=== PATIENT | female | born 1995 | race Caucasian/White ===

== ENCOUNTER 2017-09-27 09:53 | Emergency (ER) | payer OTHER ==
[2017-09-27 10:03] VITALS: BP 113/61
--- NOTE | 2017-09-27 11:11 | UC ---
Christiano Lizama Thomas, scribed for Sandra Ohara MD on 09/27/17 at 1109 . Throat Pain/Nasal Armani HPI - HPI Summary HPI Summary: The pt is a 22 y/o F presenting to Urgent Care c/o a sore throat for the last 3- 4 days. She also c/o a cough and she vomits secondary to the cough. pt does report pnd causing her to gag and cough then vomit. The pain is rated 7/10. The pain is aggravated by swallowing and is alleviated by nothing. 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 She has been taking cough medicine as well. Pt additionally c/o chills. Pt denies fevers, diarrhea, and rashes. Patient denies known recent sick contacts. No drooling. Pt is drinking from water bottle in examination room without difficulty. Pt states she thinks she has the flu. no mylagia, arthralgia or fever Patients medication reviewed this visit. - History of Current Complaint Chief Complaint: UCRespiratory Stated Complaint: THROAT PAIN Time Seen by Provider: 09/27/17 10:08 Hx Obtained From: Patient Hx Last Menstrual Period: depo Onset/Duration: Lasting Days - 3, Still Present Severity: Moderate Pain Intensity: 7 Pain Scale Used: 0-10 Numeric Cough: Nonproductive Associated Signs & Symptoms: Positive: Vomiting, Other - Sore throat, cough, chills; NEGATIVE: diarrhea. Negative: Fever, Rash - Allergies/Home Medications Allergies/Adverse Reactions: Allergies Allergy/AdvReac Type Severity Reaction Status Date / Time Lamotrigine [From Lamictal] Allergy Unknown Rash Verified 09/27/17 10:03 Home Medications: Home Medications Medroxyprogesterone Acetate (A [Depo-Provera] 400 mg IM 09/27/17 [History] PMH/Surg Hx/FS Hx/Imm Hx Previously Healthy: No - Asthma; NEGATIVE: DM - Surgical History Surgical History: Yes Surgery Procedure, Year, and Place: bilat tubs - Family History Known Family History: Positive: Cardiac Disease, Hypertension, Diabetes - Social History Occupation: Employed Full-time Lives: With Family Alcohol Use: None Substance Use Type: None Smoking Status (MU): Never Smoked Tobacco - Immunization History Most Recent Influenza Vaccination: august 2016 Review of Systems Constitutional: Chills Skin: Negative Eyes: Negative ENT: Sore Throat Respiratory: Cough Gastrointestinal: Vomiting - secondary to the cough Is Patient Immunocompromised?: No All Other Systems Reviewed And Are Negative: Yes Physical Exam Triage Information Reviewed: Yes Appearance: Well-Appearing, No Pain Distress, Well-Nourished Vital Signs: Initial Vital Signs Temp 97.5 F 09/27/17 10:00 Pulse 95 09/27/17 10:00 Resp 18 09/27/17 10:00 BP 113/61 09/27/17 10:00 Pulse Ox 99 09/27/17 10:00 Eye Exam: Normal Eyes: Positive: Conjunctiva Clear ENT: Positive: Pharyngeal erythema, Nasal drainage, TM dull, Uvula midline, Other - + PND Dental Exam: Normal Neck exam: Normal Neck: Positive: 1 Respiratory Exam: Normal Respiratory: Positive: Chest non-tender, Lungs clear, Normal breath sounds, No respiratory distress, No accessory muscle use Cardiovascular Exam: Normal Cardiovascular: Positive: RRR, No Murmur, Pulses Normal Abdominal Exam: Normal Abdomen Description: Positive: Nontender, No Organomegaly, Soft Musculoskeletal Exam: Normal Neurological Exam: Normal Psychological Exam: Normal Skin Exam: Normal Throat Pain/Nasal Course/Dx - Course Assessment/Plan: The patient is a 22 year old female presenting with sore throat , cough, chills, and vomiting secondary to the cough. Suspect sx related to PND. will check strep and flu. if neg, symptomatic tx. pt comfortable and in agreement with plan - Differential Dx/Diagnosis Provider Diagnoses: pharyngitis. URI Discharge - Discharge Plan Condition: Stable Disposition: HOME Prescriptions: Fluticasone NASAL SPRAY 50MCG* [Flonase NASAL SPRAY 50MCG*] 2 spray BOTH NARES DAILY #1 btl Patient Education Materials: Urinary Tract Infection in Women (ED), Pharyngitis (ED) Referrals: Za Braswell MD [Primary Care Provider] - Additional Instructions: - stay well hydrated. Drink plenty of non-alcholic, non-caffinated beverages - Gargle with warm, salt water 2-3 times a day - Cold beverages may be soothing to your throat - popsicles, apple sauce, jello - Once you start to feel better, change your toothbrush and your pillowcase. These infections are spread by secretions - do NOT share eating or drinking utensils - clean items you share with other people such as cell phones, computer mouse, TV remote, computer tablets, etc - Alternate ibuprofen (Advil, Motrin) 600mg and Tylenol every 3 hours for pain or fever. Take with food. Do NOT take for more than 4-5 days. - Use nasal spray as instructed - Use your albuterol - 2puffs every 4 hours today, then every 4 hours as needed - It is recommended your take a decongestant such as sudafed, Liz-D, Zyrtec- D, or Claritin-D to help with your secretions - Keep your doctor appointment as scheduled tomorrow. Contact your doctor or return with questions or concern The documentation as recorded by the Christiano simms Thomas accurately reflects the service I personally performed and the decisions made by , Sandra Ohara MD.
== END 2017-09-27 11:30 | disposition home or self-care (01) ==
LOC: UCEAST 09:53
DX: J02.9 Acute pharyngitis, unspecified (principal); J06.9 Acute upper respiratory infection, unspecified; Z88.8 Allergy status to other drugs, medicaments and biological substances
CPT/HCPCS: 87502; 87651; 99212; G0463

== ENCOUNTER 2019-08-28 09:56 | Emergency (ER) | payer MEDICARE, MEDICAID ==
--- OUTSIDE RECORDS SUMMARY | 2019-08-28 10:05 | XMS REPORT | Summary of Care ---
:1995 Author Organization [facility] Address [address] [place] [address] Care Team Providers Name Role Phone Za Braswell MD Primary Care Provider Reason for Visit Reason Comments Emesis pt states vomiting all day every day for 4 days ( pt states she took 2 test in the last 7 days that came out negative). states chest heaviness in the morning and dizziness for 2 weeks Encounter Details Date Type Department Care Team Description 07/24/2019 Office Visit [place], [place], Nausea and vomiting , intractability of vomiting not specified, unspecified vomiting type (Primary Dx); Practice PAAdolfo Malaise and fatigue [address] [place], [place] [id number] [place] [address] [phone] Allergies Active Allergy Reactions Severity Noted Date Comments Aspartame-Lamotrigine Hives 07/10/2015 Seasonal Respiratory Reaction 09/03/2016 documented as of this encounter (statuses as of 07/27/2019) Medications Medication Sig Dispensed Refills Start Date End Date Status Norethindrone Take by mouth. 0 Active Acet-Ethinyl Est (MICROGESTIN) 1-20 MG-MCG Oral Tab albuterol HFA Take 2 Puffs by 1 Inhaler 3 03/02/2019 Active (VENTOLIN) 108 (90 inhalation EVERY Base) MCG/ACT FOUR HOURS Inhalation Aero NEEDED Soln (wheezing). ondansetron Take 4 mg by 20 Tab 0 07/24/2019 Active (ZOFRAN) 4 MG Oral mouth EVERY Tab EIGHT HOURS NEEDED (nausea). Naproxen Sodium 220 Take by mouth. 0 Discontinued MG Oral Cap 9 azithromycin Take 2 pills on 6 Tab 0 03/02/2019 Discontinued (ZITHROMAX Z-MONA) the first day 9 250 MG Oral Tab and 1 pill each day for 4 days predniSONE Take 1 Tab by 7 Tab 1 03/02/2019 Discontinued (DELTASONE) 20 MG mouth DAILY. 9 Oral Tab documented as of this encounter (statuses as of 07/27/2019) Active Problems Problem Noted Date PTSD (post-traumatic stress disorder) 07/10/2015 Depression 07/10/2015 documented as of this encounter (statuses as of 07/27/2019) Resolved Problems Problem Noted Date Resolved Date Thyroid activity decreased 07/10/2015 09/03/2016 documented as of this encounter (statuses as of 07/27/2019) Immunizations Name Administration Dates Next Due DTAP Vaccine 03/07/2002, 04/15/1998, 1997, 1997, 1997 HIB 09/08/1999, 1997, 1997, 1997 Hepatitis A Vaccine Peds 05/08/2015, 09/07/2013 Hepatitis B Vaccine 09/08/1999, 05/25/1998, 1997 Human Papillomavirus 09/11/2008, 04/30/2008, 02/29/2008 Influenza (IM) W/Pres 09/03/2016 MENINGOCOCCAL CONJUGATE VACCINE 05/08/2015, 09/11/2008 MMR VACCINE 03/07/2002, 04/15/1998 Pneumococcal Conjugate Vaccine 03/07/2002 Polio - Inactivated Vaccine 05/08/2015, 01/12/2000, 1997, 1997, 1997 TDAP Vaccine 02/29/2008 Varicella Vaccine Live 09/11/2008, 06/27/2000 Vitamin B12 (1,000 mcg) 08/21/2015 documented as of this encounter Social History Tobacco Use Types Packs/Day Years Used Date Current Every Day Smoker Cigarettes 0.5 Started: 09/03/2007 Smokeless Tobacco: Never Used Alcohol Use Drinks/Week oz/Week Comments No 0 Standard drinks or equivalent 0.0 Sex Assigned at Date Recorded Not on file Job Start Date Occupation Industry Not on file Not on file Not on file Travel History Travel Start Travel End No recent travel history available. documented as of this encounter Last Filed Vital Signs Vital Sign Reading Time Taken Comments Blood Pressure 132/78 07/24/2019 4:06 PM EDT Pulse 81 07/24/2019 4:06 PM EDT Temperature 37.2 07/24/2019 4:06 PM EDT C (99 F) Respiratory Rate - - Oxygen Saturation 98% 07/24/2019 4:06 PM EDT Inhaled Oxygen Concentration - - Weight 92.1 kg (203 lb) 07/24/2019 4:06 PM EDT Height 176.5 cm (5' 9.5") 07/24/2019 4:06 PM EDT Body Mass Index 29.55 07/24/2019 4:06 PM EDT documented in this encounter Patient Instructions Patient InstructionsDoVerna brito PA-C - 07/24/2019 4:00 PM EDTOrdered labs -- will do now -- will call with results Clear liquid diet for today, advance slowly to bland diet tomorrow Escribed Zofran for nausea, take 1 every 8 hrs as needed documented in this encounter Progress Notes Verna Rodarte PA-C - 07/24/2019 4:00 PM EDT PATIENT: Charu Morelos : 1995 DATE OF SERVICE: 07/24/2019 REFERRING PRACTITIONER: Mehdi PRIMARY CARE PROVIDER: Za Braswell CHIEF COMPLAINT: Chief Complaint Patient presents with Emesis pt states vomiting all day every day for 4 days ( pt states she took 2 test in the last 7 days that came out negative). states chest heaviness in the morning and dizziness for 2 weeks Subjective HISTORY OF PRESENT ILLNESS: Charu Morelos is a 24-y.o. female who presents with intermittent vomiting, non-bloody diarrhea, chills x 4 days Chest heaviness in the morning and intermittent dizziness x 2 weeks Thought it was GERD -- did not take any OTC meds Took 2 home tests the past 7 days, all negative LMP: 2 months ago -- Normal for her control: BCP -- Takes at same time daily, no missed doses Water: 2 bottles daily Diet: a lot of meat and veggies Alcohol: 1-2 x monthly No recent med change Smokes 1/2 ppd Right now just dizzy when standing Denies fever, chest pains, SOB Depression Screening Past Medical History: Diagnosis Date ADHD (attention deficit hyperactivity disorder) Asthma Bipolar affective disorder (HCC) Depression Imbecile PTSD (post-traumatic stress disorder) 07/10/2015 Thyroid disease Past Surgical History: Procedure Laterality Date HI HEARING TEST 6 MOS PRIOR TO EAR TUBE INSERTION TONSILLECTOMY & ADENOIDECTOMY Family History Problem Relation Age of Onset Asthma Brother Current Outpatient Medications Medication Sig albuterol HFA (VENTOLIN) 108 (90 Base) MCG/ACT Inhalation Aero Soln Take 2 Puffs by inhalation EVERY FOUR HOURS NEEDED (wheezing). Norethindrone Acet-Ethinyl Est (MICROGESTIN) 1-20 MG-MCG Oral Tab Take by mouth. No current facility-administered medications for this visit. Allergies Allergen Reactions Lamictal [Aspartame-Lamotrigine] Hives Seasonal Respiratory Reaction Social History Socioeconomic History Marital status: Single Spouse name: Not on file Number of children: Not on file Years of education: Not on file Highest education level: Not on file Occupational History Not on file Social Needs Financial resource strain: Not on file Food insecurity: Worry: Not on file Inability: Not on file Transportation needs: Medical: Not on file Non-medical: Not on file Tobacco Use Smoking status: Current Every Day Smoker Packs/day: 0.50 Types: Cigarettes Start date: 09/03/2007 Smokeless tobacco: Never Used Substance and Sexual Activity Alcohol use: No Alcohol/week: 0.0 standard drinks Drug use: No Sexual activity: Yes Partners: Male Lifestyle Physical activity: Days per week: Not on file Minutes per session: Not on file Stress: Not on file Relationships Social connections: Talks on phone: Not on file Gets together: Not on file Attends hinduism service: Not on file Active member of club or organization: Not on file Attends meetings of clubs or organizations: Not on file Relationship status: Not on file Intimate partner violence: Fear of current or ex partner: Not on file Emotionally abused: Not on file Physically abused: Not on file Forced sexual activity: Not on file Other Topics Concern Back Care Not Asked Bike Helmet Not Asked Blood Transfusions Not Asked Caffeine Concern Not Asked Exercise Not Asked Hobby Hazards Not Asked International Travel Not Asked Service Not Asked Occupational Exposure Not Asked Seat Belt Not Asked Self-Exams Not Asked Sleep Concern Not Asked Special Diet Not Asked Stress Concern Not Asked Weight Concern Not Asked Social History Narrative Nurse aid?? REVIEW OF SYSTEMS: Skin: negative skin lesions Eyes: negative visual blurring Ears/Nose/Throat: negative rhinorrhea or sore throat Respiratory: positive asthma Cardiovascular: negative chest pain. Positive intermittent chest heaviness in morning, Reflux Gastrointestinal: negative abdominal pain, constipation. Positive nausea, vomiting, non-bloody diarrhea Genitourinary: negative burning on urination, dysuria or vaginal discharge Musculoskeletal: negative arthritis/joint pain Neurologic: positive adhd, dizziness Psychiatric: positive bipolar, PTSD Hematologic/Lymphatic/Immunologic: negative allergies Endocrine: negative diabetes or hot flashes/sweats Objective PHYSICAL EXAMINATION: VITALS: BP 132/78 (BP Location: Right arm, Patient Position: Sitting) | Temp 99 F (37.2 C) | Ht 5' 9.5" (1.765 m) | Wt 203 lb (92.1 kg) | BMI 29.55 kg/m Body mass index is 29.98 kg/m. General appearance - alert, mild distress, cooperative, oriented times 3 Skin - Skin color, texture, turgor normal. No rashes or lesions. Head - Normocephalic. No masses, lesions, tenderness or abnormalities Eyes - conjunctivae/corneas clear. PERRL, EOM's intact. Oropharynx - Lips, mucosa, and tongue normal. Teeth and gums normal. Oropharynx normal. Neck - Neck supple, FROM. No cervical or supraclavicular adenopathy. Thyroid normal, no enlargement Lungs - Good diaphragmatic excursion. Lungs clear. Chest symmetrical. Normal breath sounds. Heart - RRR. No murmurs, clicks or gallops. No peripheral edema. ABDOMEN: soft, mild tenderness epigastric with palpation. Bowel sounds normal. No masses, no organomegaly. IMPRESSION: ICD-9-CM ICD-10-CM 1. Nausea and vomiting, intractability of vomiting not specified, unspecified vomiting type 787.01 R11.2 COMPREHENSIVE METABOLIC PANEL CBC WITH DIFFERENTIAL 2. Malaise and fatigue 780.79 R53.81 THYROID STIMULATING HORMONE R53.83 Plan PLAN: Ordered labs -- will do now -- will call with results Clear liquid diet for today, advance slowly to bland diet tomorrow No dairy Escribed Zofran for nausea, take 1 every 8 hrs as needed Author: Verna Rodarte PA-C 07/24/2019 15:10 documented in this encounter Plan of Treatment Health Maintenance Due Date Last Done Comments CHLAMYDIA SCREENING 1995 MEDICARE ANNUAL WELLNESS VISIT 1995 PAP SMEAR 1995 PNEUMOCOCCAL 0-64 YRS (1 of 1 - 2003 03/07/2002 PPSV23) INFLUENZA VACCINE (#1) 2019 09/03/2016 DEPRESSION SCREENING 07/24/2020 07/24/2019, 07/24/2019 HPV IMMUNIZATION SERIES Completed 09/11/2008, 04/30/2008, 02/29/2008 MENINGOCOCCAL VACCINE IMM Completed 05/08/2015, 09/11/2008 documented as of this encounter Goals Goal Patient Goal Associated Recent Patient-Stated? Author Type Problems Progress Depression Depression 16 No luis Peoples (PHQ-9) (07/24/2019 SANDI Cornelius total score < 5 4:08 PM EDT) Note: This is an individualized treatment (depression) goal for Charu Morelos: Displayed above is your goal for a depression screening (PHQ-9) score that would indicate good control of your depression. Keep a regular sleep schedule Lifestyle No Ashli Peoples FNP Note: This is an individualized lifestyle goal for Charu Morelos: Please maintain a regular sleep schedule. This may help with some symptoms of depression. Take all prescribed medications as Self-management No Ashli Peoples FNP directed Note: This is an individualized self-management goal for Charu Morelos: Please take all prescribed medications as directed. 1. Do not skip doses. If you cannot afford your medications, talk with your doctor. 2. Use a pill reminder system such as a pill box if needed. Your pharmacist can help you with this. 3. Contact your Pharmacy 5 days before your medication runs out. If you cannot take your medications for any reasons, talk with your doctor. 4. Please bring all of your medication bottles and inhalers (or a list of all your medications/inhalers) with you to every visit. Potential barriers to meeting all of your care plan goals will continue to be addressed on an ongoing basis. documented as of this encounter Procedures Procedure Name Priority Date/Time Associated Diagnosis Comments CBC WITH DIFFERENTIAL Routine 07/24/2019 4:32 Nausea and vomiting, Results for this PM EDT intractability of procedure are in vomiting not the results specified, unspecified section. vomiting type THYROID STIMULATING Routine 07/24/2019 4:32 Malaise and fatigue Results for this HORMONE PM EDT procedure are in the results section. COMPREHENSIVE Routine 07/24/2019 4:32 Nausea and vomiting, Results for this METABOLIC PANEL PM EDT intractability of procedure are in vomiting not the results specified, unspecified section. vomiting type documented in this encounter Results THYROID STIMULATING HORMONE (07/24/2019 4:32 PM EDT) TSH 0.97 0.47 - 4.68 uIu/ml [facility] Specimen Blood Performing Organization Address City/State/Zipcode Phone Number [facility] [address] [place] [address] CBC WITH DIFFERENTIAL (07/24/2019 4:32 PM EDT) WBC Count 9.37 3.98 - 10.04 K/uL [facility] RBC Count 4.91 3.93 - 5.22 M/UL [facility] Hemoglobin 13.6 11.2 - 15.7 g/dL [facility] Hematocrit 42.4 34.1 - 44.9 % [facility] MCV 86.4 79.4 - 94.8 FL [facility] MCH 27.7 25.6 - 32.2 PG [facility] MCHC 32.1 (L) 32.2 - 35.5 g/dL [facility] Platelet Count 409 (H) 182 - 369 K/uL [facility] MPV 9.2 (L) 9.4 - 12.3 FL [facility] RDW 12.8 11.7 - 14.4 % [facility] Neutrophil % 55.4 34.0 - 71.1 % [facility] Lymphocyte % 35.1 19.3 - 51.7 % [facility] Monocyte % 4.7 4.7 - 12.5 % [facility] Eosinophil % 3.6 0.7 - 5.8 % [facility] Basophil % 0.9 0.1 - 1.2 % [facility] nRBC % 0.0 0.0 - 0.2 % [facility] Neutrophil # 5.19 1.56 - 6.13 K/UL [facility] Lymphocyte # 3.29 1.18 - 3.74 K/UL [facility] Monocyte # 0.44 0.24 - 0.86 K/UL [facility] Eosinophil # 0.34 0.04 - 0.36 K/UL [facility] Basophil # 0.08 0.01 - 0.08 K/UL [facility] Immature Gran % 0.3 0.0 - 0.4 % [facility] Immature Gran # 0.03 0.00 - 0.03 K/uL [facility] NRBC # 0.00 0.00 - 0.12 K/uL [facility] Specimen Blood Performing Organization Address City/State/Zipcode Phone Number [facility] [address] [place] [address] COMPREHENSIVE METABOLIC PANEL (07/24/2019 4:32 PM EDT) Sodium 140 134 - 145 mmol/L [facility] Potassium 4.0 3.5 - 5.1 mmol/L [facility] Chloride 108 (H) 98 - 107 mmol/L [facility] CO2 24 22 - 30 mmol/L [facility] Calcium 9.6 8.3 - 10.1 mg/dl [facility] Albumin 4.0 3.5 - 5.0 g/dl [facility] BUN 8 7 - 17 mg/dl [facility] Creatinine 0.7 0.7 - 1.2 mg/dl [facility] Glucose 105 (H) 70 - 99 mg/dl [facility] Total Protein 7.4 6.3 - 8.2 g/dl [facility] Total Bilirubin 0.3 0.0 - 1.1 MG/DL [facility] AST 19 15 - 46 U/L [facility] ALT 26 9 - 52 U/L [facility] Alkaline 59 40 - 150 U/L [facility] Phosphatase [facility] eGFR >60 See Interpretation [facility] Comment: Below ml/min/1.73ml [facility] Estimated GFR Interpretation: Above 60ml/min/1.73m2 = Normal Renal Function 30-59 ml/min/1.73m2 = Stage 3 Chronic Kidney Disease 15-29 ml/min/1.73m2 = Stage 4 Chronic Kidney Disease Less than 15 ml/min/1.73m2 = Stage 5 Chronic Kidney Disease The GFR value is calculated using the Modification of Diet in Renal Disease ( MDRD) Study Equation which can be found at: https://www.kidney.org/content/gutn-bzhom-vrczdztw BUN/Creatinine 11 6 - 22 RATIO [facility] Anion Gap 8 3 - 11 mmol/L [facility] A/G Ratio 1.2 0.8 - 2.0 ratio [facility] Specimen Blood Performing Organization Address City/State/Zipcode Phone Number [facility] [address] [place] [address] documented in this encounter Visit Diagnoses Diagnosis Nausea and vomiting, intractability of vomiting not specified, unspecified vomiting type - Primary Malaise and fatigue Other malaise and fatigue documented in this encounter Insurance Payer Benefit Plan / Subscriber ID Effective Dates Phone Address Type Group MEDICARE MEDICARE PART A xxxxxxxxxxx 2019-Present Medicare & B MEDICAID [facility] xxxxxxxx 2019-Present Medicaid [place] MEDICAID Guarantor Name Account Type Relation to Date of Phone Billing Patient Address Charu Morelos Personal/Family 1995 [address] (Home) [address] [phone] [place], [place] (Work) [id number] documented as of this encounter
[2019-08-28 10:19] VITALS: BP 113/68
--- NOTE | 2019-08-28 10:33 | UC ---
Skin Complaint HPI - HPI Summary HPI Summary: 24 y/o female presents to the urgent care c/o RT itchy rash in the Rt side of her groin and labia majora for the past 3 weeks. Pt has applied hydcortisone topical cream which helps w/ itchiness, but rash still present. She also c/o frequency and burning on urination for the past week and mild vaginal discharge w/o any odor. Pt has been cleaning herself w/ some OTC wipes and she is not sure if this is aggravating the rash. She hasn't shave since she developed the rash. Pt denies pain or Hx of STD's. She declines pelvic exam since she had a traumatic experience in the past. Pt denies fever, drainage, SOB, chest ain, abdominal pain, flank pain, N/V/D. LMP: 1 week ago an dis on the depo shot. - History of Current Complaint Chief Complaint: UCRash Time Seen by Provider: 08/28/19 10:31 Stated Complaint: RASH Hx Obtained From: Patient Hx Last Menstrual Period: depo. LMP 1 week ago ?: No Onset/Duration: Gradual Onset, Lasting Weeks - 3 weeks, Still Present, Worse Since - 1 week w/ urinary symptoms Skin Exposure Onset/Duration: Weeks Ago - 3 weeks ago Timing: Constant Onset Severity: Mild Current Severity: Mild Pain Intensity: 1 - on urination Pain Scale Used: 0-10 Numeric Location: Discrete - RT side of groin w/ itchy rash Character: Pruritus, Redness Aggravating Factor(s): Touch Alleviating Factor(s): Other - wipes Associated Signs & Symptoms: Positive: Rash - RT side of groin w/ itchy rash. Negative: Nausea, Fever, Chills, Drainage, Bruising, Tenderness Related History: Other: - unknown - Allergy/Home Medications Allergies/Adverse Reactions: Allergies Allergy/AdvReac Type Severity Reaction Status Date / Time lamotrigine [From Lamictal] Allergy Rash Verified 08/28/19 10:19 Home Medications: Home Medications Norethindrone/Eth Est .04/13NF [Junel (NF)] 1 tab PO 08/28/19 [History] PMH/Surg Hx/FS Hx/Imm Hx Previously Healthy: Yes Respiratory History: Asthma - controlled - Surgical History Surgical History: Yes Surgery Procedure, Year, and Place: bilat tubs - Family History Known Family History: Positive: Cardiac Disease, Hypertension, Diabetes - Social History Occupation: Employed Full-time Lives: With Family Alcohol Use: Daily Substance Use Type: None Smoking Status (MU): Heavy Every Day Tobacco Smoker Type: Cigarettes - Immunization History Most Recent Influenza Vaccination: august 2016 Review of Systems All Other Systems Reviewed And Are Negative: Yes Constitutional: Positive: Negative Skin: Positive: Rash - RT side of groin w/ itchy rash Eyes: Positive: Negative ENT: Positive: Negative Respiratory: Positive: Negative Cardiovascular: Positive: Negative Gastrointestinal: Positive: Negative Genitourinary: Positive: Dysuria, Frequency, Urgency, Vaginal/Penile Discharge - mild Motor: Positive: Negative Neurovascular: Positive: Negative Musculoskeletal: Positive: Negative Neurological: Positive: Negative Psychological: Positive: Negative Is Patient Immunocompromised?: No Physical Exam - Summary Physical Exam Summary: Vital Signs Reviewed: Yes General: well appearing, well nourished obese female in no acute apparent pain distress, sitting comfortably on examining table Eye Exam: Normal Eyes: Positive: Conjunctiva Clear - PERRLA< EOMI, fundi grossly normal ENT: Positive: Normal ENT inspection, Hearing grossly normal, Pharynx normal, TMs normal Neck: Positive: Supple, Nontender, No Lymphadenopathy Respiratory: Positive: Chest non-tender, Lungs clear, Normal breath sounds, No respiratory distress Cardiovascular: Positive: RRR, No Murmur, Pulses Normal, Brisk Capillary Refill Abdomen Description: Positive: Nontender, No Organomegaly, Soft. Negative: CVA Tenderness (R), CVA Tenderness (L) Bowel Sounds: Positive: Present Pelvic: Pt declined. Musculoskeletal: Positive: Strength Intact, ROM Intact, No Edema Neurological: Positive: Alert, Muscle Tone Normal Psychological Exam: Normal Skin: Positive: Positive erythematous eruption in the RT side of her groin w/ signs of excoriation. non tender to palpation, no swelling, no drainage observed. Triage Information Reviewed: Yes Vital Signs: Initial Vital Signs Temp 97.9 F 08/28/19 10:13 Pulse 84 08/28/19 10:13 Resp 18 08/28/19 10:13 BP 113/68 08/28/19 10:13 Pulse Ox 100 08/28/19 10:13 Course/Dx - Course Course Of Treatment: 24 y/o female presents to the urgent care c/o RT itchy rash in the Rt side of her groin and labia majora for the past 3 weeks. Pt has applied hydcortisone topical cream which helps w/ itchiness, but rash still present. She also c/o frequency and burning on urination for the past week and mild vaginal discharge w/o any odor. Pt has been cleaning herself w/ some OTC wipes and she is not sure if this is aggravating the rash. She hasn't shave since she developed the rash. Pt denies pain or Hx of STD's. She declines pelvic exam since she had a traumatic experience in the past. Pt denies fever, drainage, SOB, chest ain, abdominal pain, flank pain, N/V/D. LMP: 1 week ago an dis on the depo shot. Hx obtained. PE: WNL, Vitals: WNL. except Positive erythematous eruption in the RT side of her groin w/ signs of excoriation. non tender to palpation, no swelling , no drainage observed. Pt w/ probably contact dermatitis.UA and test ordered. UA results: Blood 3+, Leukoesterase 1+, glucose: trace, protein: trace. test: negative. FSg/dl. Pt w/ possible UTI or BV. However unable to perform pelvic exam since Pt declines. Nurse explained Pt how to take a sample from vagina. Sample sent to lab for affirm to r/o BV and liz. Pt will be Tx prophylactically for possible UTI w/ Keflex PO and Pyridium 100mg PO TID x 2 days. Triamcinolone topical cream for her rash and advised to wear cotton underwear until symptoms resolve. Advised to increase fluid intake. Urine sent for culture and affirm to lab, if any abnormality Pt will be notified for further treatment. Pt advised If symptoms do not improve advised to f/u w/ DRAPERY ROD ASSEMBLER DR Santillan in 1 week for further management. D/C instructions explained. Pt understood and agreed. Left the clinic ambulating. - Differential Diagnoses - Skin Complaint Differential Diagnoses: Abscess, Cellulitis, Contact Dermatitis, Local Allergic Reaction, Tinea, Urticaria, Other - STD's, folliculitis - Diagnoses Provider Diagnosis: Contact dermatitis, UTI (urinary tract infection) Discharge ED - Sign-Out/Discharge Documenting (check all that apply): Patient Departure - D/C home All imaging exams completed and their final reports reviewed: No Studies - Discharge Plan Condition: Stable Disposition: HOME Prescriptions: Cephalexin CAP* [Keflex CAP*] 500 mg PO BID #14 cap Phenazopyridine TAB* [Pyridium 100 mg TAB*] 100 mg PO TID #6 tab Triamcinolone 0.1% CREAM (NF) [Kenalog 0.1% Cream (NF)] 1 applic TOPICAL BID #1 applic Patient Education Materials: Urinary Tract Infection in Women (ED), Contact Dermatitis (ED) Referrals: Za Braswell MD [Primary Care Provider] - 3 Days Angela Santillan MD [Medical Doctor] - If Needed Additional Instructions: 1- Please take Keflex PO x 7 days. Pyridium 100 mg PO TID x 2 days to alleviate urinary symptoms. Increase increase fluid intake. drink cranberry juice. 2-Urine sent for culture and affirm, if any abnormality, you will be notified for further treatment. 3- Apply Triamcinolone topical cream on affected area as directed. Please wear cotton underwear until symptoms resolve 4-If symptoms do not improve please return to the urgent care or f/u with DRAPERY ROD ASSEMBLER Dr Santillan in 1 week for further management on your symptoms - Billing Disposition and Condition Condition: STABLE Disposition: Home
--- NOTE | 2019-08-29 12:36 | UC ---
- Progress Note Progress Note: PLEASE CALL PATIENT. VAGINAL SWAB POSITIVE FOR GARDNERELLA. METRONIDAZOLE TWICE DAILY FOR [address] [facility] [place]. NO ALCOHOL WHILE ON THIS MEDICATION. FOLLOW-UP IF SYMPTOMS NOT IMPROVING EXPECTED. Course/Dx - Diagnoses Provider Diagnoses: Contact dermatitis, UTI (urinary tract infection) Discharge ED - Sign-Out/Discharge Documenting (check all that apply): Post-Discharge Follow Up All imaging exams completed and their final reports reviewed: No Studies - Discharge Plan Condition: Stable Disposition: HOME Prescriptions: Cephalexin CAP* [Keflex CAP*] 500 mg PO BID #14 cap Phenazopyridine TAB* [Pyridium 100 mg TAB*] 100 mg PO TID #6 tab Triamcinolone 0.1% CREAM (NF) [Kenalog 0.1% Cream (NF)] 1 applic TOPICAL BID #1 applic Patient Education Materials: Urinary Tract Infection in Women (ED), Contact Dermatitis (ED) Referrals: Angela Santillan MD [Medical Doctor] - If Needed Za Braswell MD [Primary Care Provider] - 3 Days Additional Instructions: 1- Please take Keflex PO x 7 days. Pyridium 100 mg PO TID x 2 days to alleviate urinary symptoms. Increase increase fluid intake. drink cranberry juice. 2-Urine sent for culture and affirm, if any abnormality, you will be notified for further treatment. 3- Apply Triamcinolone topical cream on affected area as directed. Please wear cotton underwear until symptoms resolve 4-If symptoms do not improve please return to the urgent care or f/u with L[employer] RA[employer] VEHICLE OPERATOR Dr Santillan in 1 week for further management on your symptoms - Billing Disposition and Condition Condition: STABLE Disposition: Home
== END 2019-08-28 11:45 | disposition home or self-care (01) ==
LOC: UCEAST 09:56
DX: L25.9 Unspecified contact dermatitis, unspecified cause (principal); N39.0 Urinary tract infection, site not specified; B96.89 Other specified bacterial agents as the cause of diseases classified elsewhere; J45.909 Unspecified asthma, uncomplicated; F17.210 Nicotine dependence, cigarettes, uncomplicated; Z88.8 Allergy status to other drugs, medicaments and biological substances
CPT/HCPCS: 81003; 87086; 87480; 87510; 99212; G0463

== ENCOUNTER 2019-11-11 09:19 | Emergency (ER) | payer MEDICARE, MEDICAID ==
--- OUTSIDE RECORDS SUMMARY | 2019-11-11 09:23 | XMS REPORT | Summary of Care ---
:1995 Author Organization [facility] Address [address] [place] [id number] Care Team Providers Name Role Phone SkyZa myrick Primary Care Provider Reason for Visit Reason Comments ER F/U ER f/u from 08/28 for UTI and contact dermatitis. Still itching and burning down in vaginal area. Pt recieved a call after being seen at the ER stating she had BV and possible ghonorrea Sick sinus and chest congestion Encounter Details Date Type Department Care Team Description 09/18/2019 Office Visit [facility] Intertrigo ( Primary Dx); Practice BOOKING MANAGER Bacterial vaginosis; [address] Acute upper respiratory infection [place], [place] [id number] [place] [address] [phone] Allergies Active Allergy Reactions Severity Noted Date Comments Aspartame-Lamotrigine Hives 07/10/2015 Seasonal Respiratory Reaction 09/03/2016 documented as of this encounter (statuses as of 09/19/2019) Medications Medication Sig Dispensed Refills Start Date End Date Status Norethindrone Take by mouth. 0 Active Acet-Ethinyl Est (MICROGESTIN) 1-20 MG-MCG Oral Tab albuterol HFA Take 2 Puffs by 1 Inhaler 3 03/02/2019 Active (VENTOLIN) 108 (90 inhalation EVERY Base) MCG/ACT FOUR HOURS Inhalation Aero Soln NEEDED (wheezing). ondansetron (ZOFRAN) Take 4 mg by mouth 20 Tab 0 07/24/2019 Active 4 MG Oral Tab EVERY EIGHT HOURS NEEDED (nausea). Omeprazole 40 MG Take 1 Cap by mouth 30 Cap 3 07/27/2019 Active Oral CAPSULE DELAYED DAILY. RELEASE ketoconazole Apply once daily to 1 Tube 0 09/18/2019 Active (NIZORAL) 2 % Apply cover the affected externally and immediate CreamIndications: surrounding area for Intertrigo 2-3 weeks metroNIDAZOLE One applicatorful 5 Appl 0 09/18/2019 Active (METROGEL) 0.75 % intravaginally once Vaginal daily at bedtime for GelIndications: 5 days Bacterial vaginosis documented as of this encounter (statuses as of 09/19/2019) Active Problems Problem Noted Date PTSD (post-traumatic stress disorder) 07/10/2015 Depression 07/10/2015 documented as of this encounter (statuses as of 09/19/2019) Resolved Problems Problem Noted Date Resolved Date Thyroid activity decreased 07/10/2015 09/03/2016 documented as of this encounter (statuses as of 09/19/2019) Immunizations Name Administration Dates Next Due DTAP [...] Sign Reading Time Taken Comments Blood Pressure 118/60 09/18/2019 2:01 PM EST Pulse 97 09/18/2019 2:01 PM EST Temperature - - Respiratory Rate - - Oxygen Saturation 98% 09/18/2019 2:01 PM EST Inhaled Oxygen Concentration - - Weight 91.5 kg (201 lb 12.8 oz) 09/18/2019 2:01 PM EST Height 176.5 cm (5' 9.5") 09/18/2019 2:01 PM EST Body Mass Index 29.37 09/18/2019 2:01 PM EST documented in this encounter Patient Instructions Patient InstructionsSheryl Parrish NP - 09/18/2019 2:00 PM EST Record release for obgyn notes. Then make appointment with Dr. Braswell to discuss. Ketoconazole cream - apply to affected area and immediate surrounding skin once daily for 2-3 weeks. You can keep using the hydrocortisone with this. Metronidazole vaginal cream - insert one applicatorful at bedtime for 5 days. No sex until infections are cleared. For the skin - keep area clean and dry, wear cotton underwear, unscented skin sensitive soap, avoid tight pants (let the skin breath). 1) Take Motrin over the counter as needed for pain and symptom relief 2) Cough drops, honey to soothe the throat. 4) Get plenty of rest and fluids 5) Please call or return if symptoms worsen or fail to improve This is contagious. Practice good hand hygiene. Upper Respiratory Infection DRINK MIXER: An upper respiratory infection is also called a common cold. It can affect your nose, throat, ears,and sinuses. Common signs and symptoms include the following: Cold symptoms are usually worst for the first 3 to5 days. You may have any of the following: Runny or stuffy nose Sneezing and coughing Sore throat or hoarseness Red, watery, and sore eyes Fatigue Chills and fever Headache, body aches, or sore muscles Seek care immediately if: You have severe headaches, a stiff neck, or eye pain when you look at bright light. You have chest pain or trouble breathing. Contact your healthcare provider if: You have a fever over 102F (39C). Your sore throat gets worse or you see white or yellow spots in your throat. Your symptoms get worse after 3 to 5 days or your cold is not better in 14 days. You have a rash anywhere on your skin. You have large, tender lumps in your neck. You have thick, green or yellow drainage from your nose. You cough up thick yellow, green, beltran, or bloody mucus. You have vomiting for more than 24 hours and cannot keep fluids down. You have a bad earache. You have questions or concerns about your condition or care. Treatment for a cold: There is no cure for the common cold. Colds are caused by viruses and do not get better with antibiotics. Most people get better in 7 to 14 days. You may continue to cough for 2 to 3 weeks. The following may help decrease your symptoms: Decongestants help reduce nasal congestion and help you breathe more easily. If you take decongestant pills, they may make you feel restless or not able to sleep. Do not use decongestant sprays for more than a few days. Cough suppressants help reduce coughing. Ask your healthcare provider which type of cough medicine is best for you. NSAIDs , such as ibuprofen, help decrease swelling, pain, and fever. NSAIDs can cause stomach bleeding or kidney problems in certain people. If you take blood thinner medicine, always ask your healthcare provider if NSAIDs are safe for you. Always read the medicine label and follow directions. Acetaminophen decreases pain and fever. It is available without a doctor' s order. Ask how muchto take and how often to take it. Follow directions. Acetaminophen can cause liver damage if not taken correctly. Manage your cold: Use a humidifier or vaporizer. Use a cool mist humidifier or a vaporizer to increase air moisture in your home. This may make it easier for you to breathe and help decrease your cough. Gargle with warm salt water to help your sore throat feel better. Make salt water by adding teaspoon salt to 1 cup warm water. You may also suck on hard candy or throat lozenges. You may usea sore throat spray. Use saline nasal drops to help relieve your congestion. Drink liquids as directed. Liquids help keep your air passages moist and help you cough up mucus. Ask how much liquid to drink each day and which liquids are best for you. Rest as much as possible. Slowly start to do more each day. Prevent spreading your cold to others: Try to stay away from other people during the first 2 to 3 days of your cold when it is more easily spread. Do not share food or drinks. Do not share hand towels with household members. Wash your hands often, especially after you blow your nose. Turn away from other people and cover your mouth and nose with a tissue when you sneeze or cough. Follow up with your healthcare provider as directed: Write down your questions so you remember to ask them during your visits. 2016 [employer]. Information is for End User's use only and may not be sold, redistributed or otherwise used for commercial purposes. All illustrations and images included in CareNotes are the copyrighted property of [employer] or [employer]. The above information is an educational coordinator only. It is not intended as medical advice for individual conditions or treatments. Talk to your doctor, nurse or pharmacist before following any medical regimen to see if it is safe and effective for you. documented in this encounter Progress Notes Sheryl Parrish NP - 09/18/2019 2:00 PM EST PATIENT: Charu Morelos : 1995 DATE OF SERVICE: 09/18/2019 CHIEF COMPLAINT: Chief Complaint Patient presents with ER F/U ER f/u from 08/28 for UTI and contact dermatitis. Still itching and burning down in vaginal area. Pt recieved a call after being seen at the ER stating she had BV and possible ghonorrea Sick sinus and chest congestion Subjective HISTORY OF PRESENT ILLNESS: Charu Morelos is a 24-y.o. female. HPI Was started on flagyl twice daily for BV (from [facility]) - she took 3 days but was making her vomit so stopped. Still having symptoms now - discharge, wearing pads for this. Yellow. She was also prescribed triamcinolone for intertrigo but stopped because she felt not working, hydrocortisone helps with the discomfort (itching). Clearing up a bit with the hydrocortisone. Nose congestion and runny nose, chest congestion, head hurts when she blows her nose. She has been sick for 3 days. Her mother is also sick, went to [facility] and was dx with viral URI. Step dad also sick with same symptoms. Past Medical History: Diagnosis Date ADHD (attention deficit hyperactivity disorder) Asthma Bipolar affective disorder (HCC) Depression Imbecile PTSD (post-traumatic stress disorder) 07/10/2015 Thyroid disease Family History Problem Relation Age of Onset Asthma Brother Current Outpatient Medications Medication Sig albuterol HFA (VENTOLIN) 108 (90 Base) MCG/ACT Inhalation Aero Soln Take 2 Puffs by inhalation EVERY FOUR HOURS NEEDED (wheezing). ketoconazole (NIZORAL) 2 % Apply externally Cream Apply once daily to cover the affected and immediate surrounding area for 2-3 weeks metroNIDAZOLE (METROGEL) 0.75 % Vaginal Gel One applicatorful intravaginally once daily at bedtime for 5 days Norethindrone Acet-Ethinyl Est (MICROGESTIN) 1-20 MG-MCG Oral Tab Take by mouth. Omeprazole 40 MG Oral CAPSULE DELAYED RELEASE Take 1 Cap by mouth DAILY. ondansetron (ZOFRAN) 4 MG Oral Tab Take 4 mg by mouth EVERY EIGHT HOURS NEEDED (nausea). No current facility-administered medications for this visit. [...] file Gets together: Not on file Attends orthodox service: Not on file Active member of [...] History Narrative Nurse aid?? REVIEW OF SYSTEMS: Review of Systems Constitutional: Negative for chills, fever and malaise/fatigue. Gastrointestinal: Positive for nausea and vomiting. Negative for abdominal pain , constipation and diarrhea. Genitourinary: Negative for dysuria, flank pain, frequency, hematuria and urgency. Vaginal discharge yellow Skin: Positive for itching and rash. Objective PHYSICAL EXAM: VITALS: BP 118/60 (BP Location: Left arm, Patient Position: Sitting) | Pulse 97 | Ht 5' 9.5" (1.765 m) | Wt 201 lb 12.8 oz (91.5 kg) | SpO2 98% | BMI 29.37 kg/m Body mass index is 29.37 kg/m. Physical Exam Vitals signs and nursing note reviewed. Constitutional: General: She is not in acute distress. Appearance: Normal appearance. She is well-developed. Cardiovascular: Rate and Rhythm: Normal rate and regular rhythm. Heart sounds: Normal heart sounds. No murmur. No friction rub. No gallop. Pulmonary: Effort: Pulmonary effort is normal. No respiratory distress. Breath sounds: Normal breath sounds. Skin: Neurological: Mental Status: She is alert. Psychiatric: Mood and Affect: Mood and affect normal. Speech: Speech normal. Behavior: Behavior normal. Behavior is cooperative. ASSESSMENT / IMPRESSION: ICD-9-CM ICD-10-CM 1. Intertrigo 695.89 L30.4 ketoconazole (NIZORAL) 2 % Apply externally Cream 2. Bacterial vaginosis 616.10 N76.0 metroNIDAZOLE (METROGEL) 0.75 % Vaginal Gel 041.9 B96.89 3. Acute upper respiratory infection 465.9 J06.9 Plan 1. Intertrigo - ketoconazole (NIZORAL) 2 % Apply externally Cream; Apply once daily to cover the affected and immediate surrounding area for 2-3 weeks Dispense: 1 Tube; Refill: 0 2. Bacterial vaginosis I reviewed the results from urgent care, positive for gardnerella - will treat with vaginal suppository since oral tablet made her nauseous. - metroNIDAZOLE (METROGEL) 0.75 % Vaginal Gel; One applicatorful intravaginally once daily at bedtime for 5 days Dispense: 5 Appl; Refill: 0 3. Acute upper respiratory infection Viral uri - symptomatic treatment discussed. Record release for obgyn notes. Then make appointment with Dr. Braswell to discuss. Ketoconazole cream - apply to affected area and immediate surrounding skin once daily for 2-3 weeks. You can keep using the hydrocortisone with this. Metronidazole vaginal cream - insert one applicatorful at bedtime for 5 days. No sex until infections are cleared. For the skin - keep area clean and dry, wear cotton underwear, unscented skin sensitive soap, avoid tight pants (let the skin breath). 1) Take Motrin over the counter as needed for pain and symptom relief 2) Cough drops, honey to soothe the throat. 4) Get plenty of rest and fluids 5) Please call or return if symptoms worsen or fail to improve This is contagious. Practice good hand hygiene. Author: Sheryl Parrish NP 09/19/2019 07:50 documented in this encounter Plan of Treatment Date Type Specialty Care Team Description 12/21/2019 Office Visit Family Practice Za Braswell MD [address] [place] [address] [phone] Health Maintenance Due Date Last Done Comments [...] ongoing basis. documented as of this encounter Results Not on filedocumented in this encounter Visit Diagnoses Diagnosis Intertrigo - Primary Other specified erythematous condition Bacterial vaginosis Vaginitis and vulvovaginitis, unspecified Acute upper respiratory infection Acute upper respiratory infections of unspecified site documented in this encounter Insurance Payer Benefit Plan / Subscriber ID Effective Dates Phone Address Type Group MEDICARE MEDICARE PART A xxxxxxxxxxx 2019-Present Medicare & B MEDICAID [facility] xxxxxxxx 2019-Present [place] documented as of this encounter
[2019-11-11 09:34] VITALS: BP 102/62
--- NOTE | 2019-11-11 10:14 | UC ---
Abdominal Pain Female HPI - HPI Summary HPI Summary: Patient presents to urgent care with 3 complaints. 1) patient states she was at work when she had a spontaneous episode of emesis. Nonbloody nonblack. Patient states she felt better afterwards. Patient states she had now she was not vomiting until his "right" patient denies fevers or chills. Patient does report that she has had some abdominal discomfort progressive for the last 12-24 hours. Patient states she thought it was cut short, or shift yesterday was on her feet at work. Patient without any back pain. Patient denies any headache or vision changes. No trauma. No back pain. Patient is not taking any for pain. Patient states she currently does not feel nauseous. Patient works at [employer] in the [employer] area. Patient states she was at work when this occurred and they sent her here for evaluation 2) patient states she's been having some urinary symptoms over the last several days. Patient reports frequency and urgency. States she does have some burning. Patient states she's had UTIs in the past that happen after she has intercourse. Patient is on control states she doesn't think she is currently has her menses. 3) patient reports right knee pain. Patient states approximately 2 years ago she fell and injured her knee. Patient's digit x-rays that were negative. Patient states since this time she continues to have intermittent right knee pain. Patient states she feels like it pops at times. Does not week and does not give out. Patient has taken Rashi back and body was short-term relief. Patient does not use Tylenol. Patient has not taken anything else. Patient has not talked to her primary about it. Patient hasn't had physical therapy. Patient has appointment with her PCP on November 16. Patient on control. Patient's medications as entered in EMR by triage nurse reviewed this visit. - History of Current Complaint Chief Complaint: UCGeneralIllness Stated Complaint: VOMITING Time Seen by Provider: 11/11/19 09:30 Hx Obtained From: Patient Hx Last Menstrual Period: 11/11/19, states sporadic Pain Intensity: 6 Allergies/Adverse Reactions: Allergies Allergy/AdvReac Type Severity Reaction Status Date / Time lamotrigine [From Lamictal] Allergy Rash Verified 11/11/19 10:50 latex Allergy Shortness Verified 11/11/19 10:50 of Breath PMH/Surg Hx/FS Hx/Imm Hx Previously Healthy: Yes - Surgical History Surgical History: Yes Surgery Procedure, Year, and Place: bilat ear tubes as a child - Family History Known Family History: Positive: Cardiac Disease, Hypertension, Diabetes, Non- Contributory - Social History Occupation: Employed Full-time - [employer] Lives: With Family Alcohol Use: Rare Substance Use Type: None Smoking Status (MU): Heavy Every Day Tobacco Smoker Type: Cigarettes Amount Used/How Often: 1/2 PPD - Immunization History Most Recent Influenza Vaccination: august 2016 Review of Systems All Other Systems Reviewed And Are Negative: Yes Physical Exam - Summary Physical Exam Summary: Vital Signs Reviewed: Yes A+Ox3, no distress Eyes: Conjunctiva Clear, DIPAK. EOM intact and full ENT: Hearing grossly normal TM x 2 clear, mmoist, uvula midline, no exudate, no erythema Neck: Positive: Supple Respiratory: Positive: No respiratory distress, No accessory muscle use + CTA throughout no w/r Cardiovascular: RRR nl s1, s2 no m/r CBT <2 sec abd soft + BS + TTP LQ R>L no guarding, no rebound no cva Musculoskeletal Exam: SWARTZ x 4 without difficulty Strength Intact, ROM Intact, ambulatory without difficulty Neurological: Positive: Alert, + sensation throughout Psychological: Positive: Normal Response To examiner Skin: Positive: no rash, no ecchymosis Triage Information Reviewed: Yes Vital Signs: Initial Vital Signs Temp 98.1 F 11/11/19 09:27 Pulse 64 11/11/19 09:27 Resp 16 11/11/19 09:27 BP 102/62 11/11/19 09:27 Pulse Ox 99 11/11/19 09:27 Abd Pain Female Course/Dx - Course Course Of Treatment: Patient presents to urgent care with 3 complaints. One, patient complaining of some progressive abdominal pain and one episode of unprovoked vomiting today. On exam patient with tenderness in her lower quadrants and left. Further questioned patient has had some progressive anorexia last 24 hours and some mild nausea last night. Recommend patient to the emergency department for evaluation of her abdominal pain which will likely include labs as well as imaging. I spoke to wishes, pressures in the ED, was where patient will be coming Private vehicle. Recommend patient does not U drink anything prior to arrival. Patient also concern for right knee pain has been ongoing for 3 years. Patient had previous negative imaging. We will place an Jeovanny wrap recommend patient follow-up with her PCP on Wednesday sure he has an appointment and possible referrals to physical therapy. Finally, patient has had some urinary symptoms. Patient's urine here does look like pus possible UTI , but she going hemorrhage murmur we'll defer evaluation treatment there. Patient can't ongoing plan. We'll go by private vehicle.. Patient aware if symptoms or anything changes en route to picker/puller and call 911. Pt has family member to drive her - Differential Dx/Diagnosis Provider Diagnosis: Abdominal pain, Knee pain Discharge ED - Sign-Out/Discharge Documenting (check all that apply): Patient Departure All imaging exams completed and their final reports reviewed: No Studies - Discharge Plan Condition: Stable Disposition: HOME-RECOMMEND TO ED Patient Education Materials: Acute Abdominal Pain (ED), Knee Pain (ED) Referrals: Za Braswell MD [Primary Care Provider] - Additional Instructions: The doctor that evaluated you today thinks that you need additional testing that can be completed the emergency department. It is recommended that you go directly to emergency department for further evaluation. This evaluation may include blood work or imaging. This testing will be directed and decided by the provider that evaluate you at the emergency department. If pain becomes worse, you feel lightheaded, you have uncontrolled vomiting, or you have any other concerns while you are being driven to emergency department as recommended to pullover and contact 911. Wear jeovanny wrap for comfort and support. At your appointment with your primary doctor on 11/16/19 - discuss your knee pain and possible referral to physical therapy - Billing Disposition and Condition Condition: STABLE Disposition: Home-Recommend to ED
== END 2019-11-11 10:24 | disposition home health service (06) ==
LOC: UCEAST 09:19
DX: R10.32 Left lower quadrant pain (principal); R10.31 Right lower quadrant pain; M25.561 Pain in right knee; R11.2 Nausea with vomiting, unspecified; Z88.8 Allergy status to other drugs, medicaments and biological substances; Z91.040 Latex allergy status; Z79.899 Other long term (current) drug therapy; F43.10 Post-traumatic stress disorder, unspecified; F17.210 Nicotine dependence, cigarettes, uncomplicated
CPT/HCPCS: 81003; 84702; 87086; 99212; G0463

== ENCOUNTER 2019-11-11 10:42 | Emergency (ER) | payer MEDICARE, MEDICAID ==
[2019-11-11 11:34] LABS: Urine Appearance Cloudy; Urine Bilirubin Negative (Negative); Urine Blood 3+ (Negative); Urine Color Yellow; Urine Glucose Negative (Negative); Urine Ketones 1+ (Negative); Urine Nitrite Negative (Negative); Urine Protein 1+(30 mg/dL) (Negative); Urine Specific Gravity 1.024 (1.010-1.030); Urine Urobilinogen Negative (Negative)
[2019-11-11 11:39] LABS: Urine Bacteria 1+ (Absent); Urine Red Blood Cell 3+(>10/hpf) (Absent); Urine Squamous Epithelial Cell Present (Absent); Urine White Blood Cell 2+(11-20/hpf) (Absent)
[2019-11-11 11:41] LABS: ABS Basophils 0.1 10^3/ul (0-0.2); ABS Eosinophils 0.2 10^3/ul (0-0.6); ABS Lymphocytes 2.7 10^3/ul (1.0-4.8); ABS Monocytes 0.5 10^3/ul (0-0.8); ABS Neutrophils 8.6 10^3/ul (1.5-7.7); Eosinophil % 1.5 %; Hematocrit 39 % (35-47); Hemoglobin 13.1 g/dL (12.0-16.0); Lymphocyte % 22.4 %; Mean Corpuscular HGB Conc 34 g/dL (31-36); Mean Corpuscular Hemoglobin 29 pg (27-31); Mean Corpuscular Volume 85 fL (80-97); Nucleated Red Blood Cells % 0.1; Platelet Count 353 10^3/uL (150-450); Red Blood Count 4.59 10^6 /uL (3.70-4.87); Red Cell Distribution Width 13 % (10-15); White Blood Count 12.1 10^3/uL (3.5-10.8)
[2019-11-11 11:58] LABS: ALT 23 U/L (7-52); AST 16 U/L (13-39); Albumin 3.9 g/dL (3.2-5.2); Albumin/Globulin Ratio 1.3 (1-3); Alkaline Phosphatase 55 U/L (34-104); Anion Gap 6 mmol/L (2-11); BUN/Creatinine Ratio 16.9 (8-20); Blood Urea Nitrogen 12 mg/dL (6-24); C Reactive Protein 7.76 mg/L (<8.01); CO2 Carbon Dioxide 23 mmol/L (22-32); Chloride 108 mmol/L (101-111); EGFR African American 124.6 (>60); EGFR Non-African American 102.9 (>60); Globulin 2.9 g/dL (2-4); Glucose 79 mg/dL (70-100); Potassium 3.8 mmol/L (3.5-5.0); Sodium 137 mmol/L (135-145); Total Protein 6.8 g/dL (6.4-8.9)
[2019-11-11 12:04] LABS: HCG Pregnancy < 0.60 mIU/mL
[2019-11-11 12:51] VITALS: BP 110/64
--- NOTE | 2019-11-11 13:08 | ED ---
Abdominal Pain/Female - HPI Summary HPI Summary: This patient is a 24-year-old female presenting to the ED from urgent care with chief complaint of nausea and vomiting 1 this morning as well as RLQ pain. She states this pain has been present for several years and is often intermittent. She states the discomfort in her abdomen is all over, but during evaluation at , it was more localized to the RLQ. She denies having nausea and vomiting associated with this pain. Patient denies any fevers, sweats, chills. She denies any constipation, however had one episode diarrhea. This was nonbloody. She does endorse blood in her vomit, however when asked about this further, she states there was only a few specks. 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 Sxs currently are rated 5/10, not worse with positioning. Sxs have improved since this morning. - History of Current Complaint Chief Complaint: EDAbdPain Stated Complaint: ABDOMINAL PAIN PER PT Time Seen by Provider: 11/11/19 11:00 Hx Obtained From: Patient Hx Last Menstrual Period: 11/11/19, states sporadic ?: No Onset/Duration: Sudden Onset Timing: Constant Severity Initially: Moderate Severity Currently: Mild Pain Intensity: 0 Pain Scale Used: 0-10 Numeric Location: Diffuse - but worse with palpation to the RLQ Radiates: No Character: Cramping Aggravating Factor(s): Nothing Alleviating Factor(s): Nothing Associated Signs and Symptoms: Positive: Nausea, Vomiting, Diarrhea. Negative: Fever, Cough, Chest Pain, Constipation, Blood in Stool, Urinary Symptoms, Decreased Appetite - Risk Factors Ovarian Torsion Risk Factor: Reproductive Age Allergies/Adverse Reactions: Allergies Allergy/AdvReac Type Severity Reaction Status Date / Time lamotrigine [From Lamictal] Allergy Rash Verified 11/11/19 10:50 latex Allergy Shortness Verified 11/11/19 10:50 of Breath Home Medications: Home Medications Norethindrone/Eth Est .04/13NF [ (NF)] 1 tab PO DAILY 11/11/19 [ History Confirmed 11/11/19] PMH/Surg Hx/FS Hx/Imm Hx Previously Healthy: Yes Respiratory History: Reports: Hx Asthma Psychiatric History: Reports: Hx Attention Deficit Hyperactivity Disorder, Hx Depression, Hx Post Traumatic Stress Disorder, Hx Inpatient Treatment, Hx Bipolar Disorder - "EVERYONE EXCEPT GRANDFATHER", Hx Suicide Attempt - PATERNAL GRANDMOTHER, Other Psychiatric Issues/Disorders - hx SIB Denies: Hx Eating Disorder - Surgical History Surgery Procedure, Year, and Place: bilat ear tubes as a child - Immunization History Hx Pertussis Vaccination: No Immunizations Up to Date: Yes Infectious Disease History: No Infectious Disease History: Denies: Traveled Outside the [place] in Last 30 Days - Family History Known Family History: Positive: Cardiac Disease, Hypertension, Diabetes, Non- Contributory - Social History Occupation: Employed Full-time Lives: With Family Alcohol Use: Rare Hx Substance Use: No Substance Use Type: Reports: None Hx Tobacco Use: Yes Smoking Status (MU): Heavy Every Day Tobacco Smoker Type: Cigarettes Amount Used/How Often: 1/2 PPD Review of Systems Negative: Fever, Chills, Fatigue, Skin Diaphoresis Negative: Palpitations, Chest Pain Negative: Shortness Of Breath Positive: Abdominal Pain, Vomiting, Diarrhea, Nausea Genitourinary: Negative Positive: no symptoms reported, see HPI Negative: Arthralgia, Myalgia Neurological: Negative All Other Systems Reviewed And Are Negative: Yes Physical Exam Triage Information Reviewed: Yes Vital Signs On Initial Exam: Initial Vitals Temp Pulse Resp BP Pulse Ox 97.9 F 80 16 117/71 99 11/11/19 10:49 11/11/19 10:49 11/11/19 10:49 11/11/19 10:49 11/11/19 10:49 Vital Signs Reviewed: Yes Appearance: Positive: Well-Appearing, Well-Nourished Skin: Positive: Warm, Skin Color Reflects Adequate Perfusion Head/Face: Positive: Normal Head/Face Inspection Eyes: Positive: EOMI, DIPAK, Conjunctiva Clear Neck: Positive: Supple, Nontender, No Lymphadenopathy Respiratory/Lung Sounds: Positive: Clear to Auscultation, Breath Sounds Present Cardiovascular: Positive: RRR, Pulses are Symmetrical in both Upper and Lower Extremities Abdomen Description: Positive: Soft, McBurney's Point Tenderness, Other: - RLQ pain on palpation - mild. negative psoas, negative obturator. Negative: CVA Tenderness (R), CVA Tenderness (L), Distended, Guarding Musculoskeletal: Positive: Normal, Strength/ROM Intact Neurological: Positive: Sensory/Motor Intact, Alert, Oriented to Person Place, Time Psychiatric: Positive: Normal, Affect/Mood Appropriate AVPU Assessment: Alert Procedures - Sedation Patient Received Moderate/Deep Sedation with Procedure: No Diagnostics - Vital Signs Vital Signs Temp Pulse Resp BP Pulse Ox 11/11/19 12:44 80 110/64 99 11/11/19 12:14 73 103/58 98 11/11/19 12:00 76 98 11/11/19 11:44 78 114/82 97 11/11/19 11:15 71 112/65 98 11/11/19 11:04 94 99 11/11/19 10:49 97.9 F 80 16 117/71 99 - Laboratory Lab Results: Lab Results 11/11/19 11/11/19 11/11/19 Range/Units 11:25 11:35 11:35 WBC 12.1 H (3.5-10.8) 10^3/uL RBC 4.59 (3.70-4.87) 10^6 /uL Hgb 13.1 (12.0-16.0) g/dL Hct 39 (35-47) % MCV 85 (80-97) fL MCH 29 (27-31) pg MCHC 34 (31-36) g/dL RDW 13 (10-15) % Plt Count 353 (150-450) 10^3/uL MPV 7.0 L (7.4-10.4) fL Neut % (Auto) 71.1 % Lymph % (Auto) 22.4 % [place] % (Auto) 4.2 % Eos % (Auto) 1.5 % Baso % (Auto) 0.8 % Absolute Neuts (auto) 8.6 H (1.5-7.7) 10^3/ul Absolute Lymphs (auto) 2.7 (1.0-4.8) 10^3/ul Absolute Monos (auto) 0.5 (0-0.8) 10^3/ul Absolute Eos (auto) 0.2 (0-0.6) 10^3/ul Absolute Basos (auto) 0.1 (0-0.2) 10^3/ul Absolute Nucleated RBC 0.0 10^3/ul Nucleated RBC % 0.1 Sodium 137 (135-145) mmol/L Potassium 3.8 (3.5-5.0) mmol/L Chloride 108 (101-111) mmol/L Carbon Dioxide 23 (22-32) mmol/L Anion Gap 6 (2-11) mmol/L BUN 12 (6-24) mg/dL Creatinine 0.71 (0.51-0.95) mg/dL Est GFR ( Amer) 124.6 (>60) Est GFR (Non-Af Amer) 102.9 (>60) BUN/Creatinine Ratio 16.9 (8-20) Glucose 79 (70-100) mg/dL Lactic Acid (0.5-2.0) mmol/L Calcium 9.0 (8.6-10.3) mg/dL Magnesium 2.0 (1.9-2.7) mg/dL Total Bilirubin 0.90 (0.2-1.0) mg/dL AST 16 (13-39) U/L ALT 23 (7-52) U/L Alkaline Phosphatase 55 (34-104) U/L C-Reactive Protein 7.76 (<8.01) mg/L Total Protein 6.8 (6.4-8.9) g/dL Albumin 3.9 (3.2-5.2) g/dL Globulin 2.9 (2-4) g/dL Albumin/Globulin Ratio 1.3 (1-3) Lipase < 10 L (11.0-82.0) U/L Beta HCG, Quant < 0.60 mIU/mL Urine Color Yellow Urine Appearance Cloudy Urine pH 5.0 (5-9) Ur Specific [place] 1.024 (1.010-1.030) Urine Protein 1+(30 mg/dl) A (Negative) Urine Ketones 1+ A (Negative) Urine Blood 3+ A (Negative) Urine Nitrate Negative (Negative) Urine Bilirubin Negative (Negative) Urine Urobilinogen Negative (Negative) Ur Leukocyte Esterase 1+ A (Negative) Urine WBC (Auto) 2+(11-20/hpf) A (Absent) Urine RBC (Auto) 3+(>10/hpf) A (Absent) Ur Squamous Epith Cells Present A (Absent) Urine Bacteria 1+ A (Absent) Urine Glucose Negative (Negative) 11/11/19 Range/Units 11:35 WBC (3.5-10.8) 10^3/uL RBC (3.70-4.87) 10^6 /uL Hgb (12.0-16.0) g/dL Hct (35-47) % MCV (80-97) fL MCH (27-31) pg MCHC (31-36) g/dL RDW (10-15) % Plt Count (150-450) 10^3/uL MPV (7.4-10.4) fL Neut % (Auto) % Lymph % (Auto) % [place] % (Auto) % Eos % (Auto) % Baso % (Auto) % Absolute Neuts (auto) (1.5-7.7) 10^3/ul Absolute Lymphs (auto) (1.0-4.8) 10^3/ul Absolute Monos (auto) (0-0.8) 10^3/ul Absolute Eos (auto) (0-0.6) 10^3/ul Absolute Basos (auto) (0-0.2) 10^3/ul Absolute Nucleated RBC 10^3/ul Nucleated RBC % Sodium (135-145) mmol/L Potassium (3.5-5.0) mmol/L Chloride (101-111) mmol/L Carbon Dioxide (22-32) mmol/L Anion Gap (2-11) mmol/L BUN (6-24) mg/dL Creatinine (0.51-0.95) mg/dL Est GFR ( Amer) (>60) Est GFR (Non-Af Amer) (>60) BUN/Creatinine Ratio (8-20) Glucose (70-100) mg/dL Lactic Acid 0.3 L (0.5-2.0) mmol/L Calcium (8.6-10.3) mg/dL Magnesium (1.9-2.7) mg/dL Total Bilirubin (0.2-1.0) mg/dL AST (13-39) U/L ALT (7-52) U/L Alkaline Phosphatase (34-104) U/L C-Reactive Protein (<8.01) mg/L Total Protein (6.4-8.9) g/dL Albumin (3.2-5.2) g/dL Globulin (2-4) g/dL Albumin/Globulin Ratio (1-3) Lipase (11.0-82.0) U/L Beta HCG, Quant mIU/mL Urine Color Urine Appearance Urine pH (5-9) Ur Specific [place] (1.010-1.030) Urine Protein (Negative) Urine Ketones (Negative) Urine Blood (Negative) Urine Nitrate (Negative) Urine Bilirubin (Negative) Urine Urobilinogen (Negative) Ur Leukocyte Esterase (Negative) Urine WBC (Auto) (Absent) Urine RBC (Auto) (Absent) Ur Squamous Epith Cells (Absent) Urine Bacteria (Absent) Urine Glucose (Negative) Result Diagrams: 11/11/19 11:35 11/11/19 11:35 Lab Statement: Any lab studies that have been ordered have been reviewed, and results considered in the medical decision making process. Abdominal Pain Fem Course/Dx - Course Course Of Treatment: During his procedure treatment the patient's evaluated for right lower quadrant pain with one episode of vomiting this morning. Patient denies any nausea at this time. She is currently rating her pain a 5/10. She does admit that this pain has been intermittent and has been present "for several years." She again states, "I just deal with it." She was seen at the urgent care today for her nausea, vomiting and right lower quadrant pain. She did have tenderness on exam her provider at and sent here for further evaluation. On physical examination, the patient has mild tenderness to the RLQ. She denies any nausea this time. She is nondiaphoretic and well- appearing. Vital signs are stable. Lungs CTA,. This patient appears stable, well with minimal discomfort to the RLQ, discussed with the patient obtaining labs at this time to assess for inflammatary markers, CBC and a re-evaluation of sxs. WBC shows slight elevation at 12K with normal CRP. This does not appear to indicate appy with the elevated WBC more consistent with previous vomiting and pt was re-examined with again, less RLQ pain. Discussed further evaluation by OBGYN in non-emergent setting to assess for ovarian cysts and to esablish care. Pt understands if she has any worsening symptoms including fever to return to the ED. Pt is agreeable to this plan and DC'd with note for work. - Diagnoses Differential Diagnosis: Positive: Other - nausea, vomiting, appendicitis, muscle pain, ovarian cyst Provider Diagnoses: Abdominal pain Discharge ED - Sign-Out/Discharge Documenting (check all that apply): Patient Departure - Discharge Plan Condition: Stable Disposition: HOME Prescriptions: Nitrofurantoin Monohyd/M-Cryst [Macrobid 100 mg Capsule] 100 mg PO BID #10 cap MDD 2 Ondansetron ODT TAB* [Zofran 4 MG Odt TAB*] 4 mg PO Q6H PRN #12 tab.odt MDD 4 PRN Reason: Nausea Patient Education Materials: Urinary Tract Infection in Women (ED) Forms: *Work Release Referrals: Za Braswell MD [Primary Care Provider] - Andie Klein MD [Medical Doctor] - Additional Instructions: Zofran up to 4 times daily as needed for nausea Macrobid twice daily 5 days Please return to the ED if you develop any worsening abdominal pain, nausea or vomiting Eat small amounts at a time including chicken noodle soup, toast, applesauce, bananas, crackers - Billing Disposition and Condition Condition: STABLE Disposition: Home - Attestation Statements Provider Attestation: I was available for consultation for this patient. I did not evaluate the patient or participate in any medical decision making or disposition decisions unless I am specifically named in the chart as having consulted on the patient. If I have consulted on the patient, please see my own ED note on the patient encounter. Marty Acosta MD
== END 2019-11-11 13:12 | disposition home or self-care (01) ==
LOC: ED 10:42
DX: R10.31 Right lower quadrant pain (principal); Z79.899 Other long term (current) drug therapy; F43.10 Post-traumatic stress disorder, unspecified; F17.210 Nicotine dependence, cigarettes, uncomplicated
CPT/HCPCS: 36415; 80053; 81003; 81015; 83605; 83690; 83735; 84702; 85025; 86140; 99283